=== PATIENT | female | born 1985 | race Two or more races ===

== ENCOUNTER 2018-03-01 10:55 | Emergency (ER) | payer OTHER, MEDICAID ==
[~2018-03-01] VITALS: Ht 180.3 cm; Wt 138.3 kg
[2018-03-01 11:00] VITALS: BP 139/83
[2018-03-01] MEDS ORDERED: SODIUM CHLORIDE 0.9% 1,000 ML IV ONE (11:30)
[2018-03-01] MEDS ORDERED: CLINDAMYCIN 900MG IV 50 ML IV ONE (11:30)
[2018-03-01] MEDS ORDERED: cefTRIAXone 1GM/10ml IVPUSH 10 ML IV ONE (11:30)
[2018-03-01] MEDS ORDERED: methylPREDNISolone SOD SUCC 125 MG/2 ML VL IV ONE (11:30)
[2018-03-01] MEDS ORDERED: KETOROLAC TROMETH 30 MG/ML 1ML VIAL IV ONE (11:30)
== END 2018-03-01 13:02 | disposition home or self-care (01) ==
LOC: ER 10:55
DX: J03.90 Acute tonsillitis, unspecified (principal); E07.89 Other specified disorders of thyroid; Z88.0 Allergy status to penicillin
CPT/HCPCS: 87070; 87880; 96365; 96375; 99284; J1885; J2930; J3490; J7030

== ENCOUNTER → 2020-01-23 | Emergency (ER) | payer MEDICAID, OTHER ==
[~2020-01-23] VITALS: Ht 180.3 cm; Wt 97.5 kg
[~2020-01-23] MED LIST: LIDOCAINE VISCOUS 2% 15ML UD PO ONE; cefTRIAXone SOD 1,000 MG VL IM ONE; methylPREDNISolone SOD SUCC 125 MG/2 ML VL IM ONE
[2020-01-23 17:17] VITALS: BP 150/90
== END | disposition home or self-care (01) ==
LOC: EDUNIT# 17:02 → ER 17:15 → EDBD 17:15
DX: J03.90 Acute tonsillitis, unspecified (principal); E07.9 Disorder of thyroid, unspecified; Z88.0 Allergy status to penicillin
CPT/HCPCS: 87070; 87880; 96372; 99284; J0696; J2930

== ENCOUNTER 2023-01-18 16:08 | Emergency (ER) | payer MEDICAID ==
[~2023-01-18] VITALS: Ht 180.3 cm; Wt 104.0 kg
[2023-01-18] MEDS ORDERED: HYDROcodone-ACET 10/325MG TAB PO ONE (16:30)
[2023-01-18] MEDS ORDERED: ALPRAZolam 0.5 MG TAB PO ONE (16:30)
[2023-01-18 16:48] LABS: Basophils # (auto) 0.1 10 ^3/uL (0-0.2); Basophils % (auto) 0.8 % (0.0-2.0); Eosinophils # (auto) 0.1 10 ^3/uL (0-0.8); Hematocrit 41.6 % (36.0-46.0); Lymphocytes # (auto) 2.4 10 ^3/uL (0.4-5.4); Lymphocytes % (auto) 24.5 % (10.0-50.0); Mean Corpuscular Hemoglobin 29.2 pg (28.0-32.0); Mean Corpuscular Hgb Conc. 33.5 g/dL (32.0-36.0); Mean Corpuscular Volume 86.9 fL (80.0-100.0); Monocytes # (auto) 0.5 10 ^3/uL (0-1.3); Monocytes % (auto) 5.3 % (0.0-12.0); Neutrophils # (auto) 6.6 10 ^3/uL (1.6-8.6); Neutrophils % (auto) 68.4 % (37.0-80.0); Nucleated Red Blood Cells % 0.1 %; Red Blood Cells 4.79 10^6/uL (4.0-5.20); Red Cell Distribution Width 13.3 % (11.8-14.3); White Blood Cell 9.7 10^3/uL (4.4-10.8)
[2023-01-18 17:07] LABS: Albumin 3.7 g/dL (3.4-5.0); Calcium 9.5 mg/dL (8.5-10.1)
[2023-01-18 17:11] LABS: BUN/Creatinine Ratio 14.9 (10.0-20.0); Bilirubin, Total 0.4 mg/dL (0.2-1.0); Total Protein 8.4 g/dL (6.4-8.2)
[2023-01-18] MEDS ORDERED: IBUP800T26 PO ×3 (20:38→22:17)
[2023-01-18] MEDS ORDERED: HYDR-4798 PO ×3 (20:38→22:17)
[2023-01-19 00:09] VITALS: BP 138/79
== END 2023-01-19 00:23 | disposition home or self-care (01) ==
LOC: ER 16:08 → EDBD 16:08 → ER 01-19 00:23
DX: G89.18 Other acute postprocedural pain (principal); R10.2 Pelvic and perineal pain; N99.820 Postprocedural hemorrhage of a genitourinary system organ or structure following a genitourinary system procedure; Z88.0 Allergy status to penicillin
CPT/HCPCS: 36415; 74177; 80053; 85025

== ENCOUNTER 2023-10-10 19:59 | Emergency (ER) | payer MEDICAID ==
[~2023-10-10] VITALS: Ht 180.3 cm; Wt 107.0 kg
[~2023-10-10 19:59] MED LIST changes: +HYDR-4798 PO; +IBUP-1455 PO; -LIDOCAINE VISCOUS 2% 15ML UD PO ONE; -cefTRIAXone SOD 1,000 MG VL IM ONE; -methylPREDNISolone SOD SUCC 125 MG/2 ML VL IM ONE
[2023-10-11 00:05] VITALS: BP 129/84; PULSE 78; RESP 18; TEMP 98.1; O2SAT 100
[2023-10-11] MEDS ORDERED: KETOROLAC TROMETH 30 MG/ML 1ML VIAL IM ONE (00:45)
[2023-10-11] MEDS ORDERED: RABIES VACCINE (PCEC)/PF 2.5 UNITS IM ONE (00:45)
[2023-10-11] MEDS ORDERED: RABIES IMMUNE GLOBULIN 300unit/2ml (150unit/ml) INJ IM ONE (00:45)
[2023-10-11] MEDS ORDERED: TETANUS-DIPTH-ACEL PERTUSSIS 0.5ML SYR Tdap IM ONE (01:00)
[2023-10-11] MEDS ORDERED: CEFU500T43 PO ×3 (02:59→20:21)
[2023-10-11] MEDS ORDERED: MET500T PO ×3 (02:59→20:21)
== END 2023-10-11 03:00 | disposition home or self-care (01) ==
LOC: ER 19:59
DX: S51.852A Open bite of left forearm, initial encounter (principal); R09.89 Other specified symptoms and signs involving the circulatory and respiratory systems; R07.89 Other chest pain; E03.9 Hypothyroidism, unspecified; Z79.1 Long term (current) use of non-steroidal anti-inflammatories (NSAID); Z79.899 Other long term (current) drug therapy; Z88.0 Allergy status to penicillin; W54.0XXA Bitten by dog, initial encounter; Y93.89 Activity, other specified; Y92.89 Other specified places as the place of occurrence of the external cause; Y99.8 Other external cause status
CPT/HCPCS: 71045; 73090; 90471; 90472; 90675; 90715; 96372; 99284; J1885

== ENCOUNTER 2025-08-10 02:44 | Emergency (ER) | payer MEDICAID ==
[~2025-08-10] VITALS: Ht 180.3 cm; Wt 98.9 kg
[~2025-08-10 02:44] MED LIST changes: +CEFU500T43 PO; +MET500T PO
--- NOTE | 2025-08-10 03:09 | ED.PDOC ---
History of Present Illness HPI Comments 40-year-old, obese female presents with chief complaint of right knee pain status post blunt trauma. Patient reports on injuring her right knee after her dog ran into it 1 week ago. Denies any additional falls or trauma to right knee prior to or after the incident. Denies any further symptoms. Chief Complaint: Lower Extremity Time Seen by MD: 02:58 Primary Care Provider: UNKNOWN Reviewed Notes: Nurses Notes, Medications, Allergies Allergies: Coded Allergies: Penicillins (Verified Allergy, Unknown, 11/24/15) Home Meds Active Scripts Tizanidine Hydrochloride (Tizanidine Hcl) 4 Mg Tab, 4 MG PO BID PRN for 7 Days, #14 TAB Prov:TRENA BRUNO [employer]TLEMENT PROCESSOR 08/10/25 Methylprednisolone (Medrol Dosepak) 4 Mg Guevara, 4 MG PO UD for 6 Days, #21 TAB UAD Prov:TRENA BRUNO [employer] SETTLEMENT PROCESSOR 08/10/25 Metronidazole (Metronidazole) 500 Mg Tab, 500 MG PO TID for 7 Days, #21 TAB Prov:ANATOLIY CHAIREZ PAC 10/11/23 Cefuroxime Axetil (Cefuroxime Axetil) 500 Mg Tab, 1 TAB PO BID for 7 Days, #14 TAB Prov:ANATOLIY CHAIREZ PAC 10/11/23 Ibuprofen Micronized (Ibuprofen) 800 Mg Tab, 800 MG PO Q8HP PRN, #30 TAB Prov:JOESPH ROUSE PAC 01/18/23 Hydrocodone-Acetaminophen (Hydrocodone Bitartrate/AC 10-325 mg) 1 Tab Tab, 1 TAB PO Q8HP PRN, #20 TAB Prov:JOESPH [facility] 01/18/23 Information Source: Patient Mode of Arrival: Ambulatory Severity: Moderate Timing: Days Duration: Since onset Prehospital treatment: None Past Medical History PAST MEDICAL HISTORY: Thyroid Surgical History: Denies all surgeries QUOTER History: No Pertinent QUOTER History Family History Family History: No family hx of HTN, Unobtainable Social History Smoker: Non-Smoker Alcohol: Rarely Drugs: Denies Drug Use Lives In: Home All Other Systems: Reviewed and Negative (Comprehensive review of systems are negative unless otherwise stated in HPI) Physical Exam General Appearance: No Apparent Distress, Obese HEENT: Normal ENT Inspection, Pharynx Normal, TMs Normal Neck: Full Range of Motion, Non-Tender, Normal, Normal Inspection Respiratory: Chest Non-Tender, Lungs Clear, No Accessory Muscle Use, No Respiratory Distress, Normal Breath Sounds Cardiovascular: No Edema, No JVD, No Murmur, No Gallop, Normal Peripheral Pulses, Regular Rate/Rhythm Breast Exam: Deferred Gastrointestinal: No Organomegaly, Non Tender, No Pulsatile Mass, Normal Bowel Sounds, Soft Genitalia: Deferred Pelvic: Deferred Rectal: Deferred Extremities: No calf tenderness, Normal capillary refill, Normal inspection, Normal range of motion, Non-tender, No pedal edema Musculoskeletal : Apperance: Normal Neurologic: Alert, orthopaedic general II-XII nml as Tested, No Motor Deficits, Normal Affect, Normal Mood, No Sensory Deficits Cerebellar Function: Normal Reflexes: Normal Skin: Dry, Normal Color, Warm Lymphatic: No Adenopathy Was a procedure done? Was a procedure done?: No Differential Dx Considerations may include: Fractures, contusions, sprain, dislocation, among others X-Ray, Labs, Meds, VS Vital Signs Date Time Temp Pulse Resp B/P (MAP) Pulse Ox O2 Delivery O2 Flow Rate FiO2 08/10/25 02:58 97.6 82 20 145/82 97 97.6 [place] [id number] Ph: [phone] DIAGNOSTIC IMAGING Diagnostic Imaging Report : [id number] Signed PATIENT: ADRIANA ELIZABETH ACCT: [id number] UNIT: [id number] : 1985 LOC: ER ROOM / BED: / AGE / SEX: 40 / F ADM STATUS: REG ER SERVICE 6 ORDERING PHYSICIAN: TRENA BRUNO PROCEDURE(s): RKN3 - R KNEE 3V XRAY REASON: pain injury ORDER NUMBER(s): [id number], ACCESSION NUMBER(s): [id number] CLINICAL INDICATION: pain injury TECHNIQUE: XY R KNEE 3V XRAY Comparison: XY L FOREARM XRAY on DOS: 10/11/23 FINDINGS/IMPRESSION: : There is no evidence of acute fracture or dislocation. Soft tissues are unremarkable. ATED BY: EDNYS GREENFIELD MD DICTATED DATE/TIME: 08/10/25 0321 SIGNED BY: DENYS GREENFIELD MD SIGNED DATE/TIME: 08/10/25 0321 CC: Time of 1ST Reevaluation: 02:58 Reevaluation 1ST: Unchanged Time of 2ND Reevaluation: 03:50 Reevaluation 2ND: Improved Patient Education/Counseling: Diagnosis, Treatment, Need For Follow Up Family Education/Counseling: No Family Present SEPSIS Sepsis Screen Date sepsis recognized/suspect: Aug 10, 2025 Time Sepsis recognized/suspect: 030 Recent Procedure: No On Antibiotic Therapy: No Respiratory Rate >20: No Heart Rate >90: No Temp<36 C (96.8 F) or >38.3 C: No SBP <90 or MAP <65 mmHG: No New Acute Mental Status Change: No Is the patient on CPAP, BIPAP,: No Physician Orders R Knee 3v Xray (08/10/25 03:07) Oxycodone W/ Acet 5/325mg Tab (Percocet (08/10/25 04:00) Vital Signs Date Time Temp Pulse Resp B/P (MAP) Pulse Ox O2 Delivery O2 Flow Rate FiO2 08/10/25 02:58 97.6 82 20 145/82 97 97.6 Departure 1 Departure Time of Disposition: 03:48 Impression: Primary Impression: Strain of knee and leg, right Qualified Codes: S86.911A - Strain of unspecified muscle(s) and tendon(s) at lower leg level, right leg, initial encounter Disposition: HOME / SELF CARE / HOMELESS Condition: Stable e-Prescriptions Tizanidine Hydrochloride (Tizanidine Hcl) 4 Mg Tab 4 MG PO BID PRN for 7 Days, #14 TAB Prov: TRENA BRUNO [employer] SETTLEMENT PROCESSOR 08/10/25 Methylprednisolone (Medrol Dosepak) 4 Mg Guevara 4 MG PO UD for 6 Days, #21 TAB UAD Prov: TRENA BRUNO [employer] SETTLEMENT PROCESSOR 08/10/25 Discharged With: Self Critical Care Note Critical Care Time?: No Stability Stability form required: No Heart Score Heart Score: Heart Score Response (Comments) Value History N/A 0 EKG N/A 0 Age N/A 0 Risk Factors N/A 0 Troponin N/A 0 Total 0 I personally scribed for ER ([email or web address]) on 08/10/25 at 03:09. Electronically submitted by Anshu Rodriguez ([email or web address]). I personally scribed for ER ([email or web address]) on 08/10/25 at 03:53. Electronically submitted by Anshu Rodriguez ([email or web address]). ER Aug 10, 2025 03:09 TRENA BRUNO [employer] SETTLEMENT PROCESSOR Aug 10, 2025 03:50
--- NOTE | 2025-08-10 03:23 | DVH ---
CLINICAL INDICATION: pain injury TECHNIQUE: XY R KNEE 3V XRAY Comparison: XY L FOREARM XRAY on DOS: 10/11/23 FINDINGS/IMPRESSION: : There is no evidence of acute fracture or dislocation. Soft tissues are unremarkable.
[2025-08-10] MEDS ORDERED: TIZA-142 PO (03:49)
[2025-08-10] MEDS ORDERED: METH4PAK PO (03:49)
[2025-08-10 04:47] VITALS: BP 128/70; PULSE 90; RESP 18; TEMP 98.4; O2SAT 99
[2025-08-10] MEDS: OXYCODONE W/ ACETAMINOPHEN 5/325MG TABLET PO ONE (04:47)
[2025-08-10] MEDS: KETOROLAC TROMETH 60MG/2ML VIAL IM ONE (04:47)
== END 2025-08-10 05:28 | disposition home or self-care (01) ==
LOC: ER 02:44
DX: S86.911A Strain of unspecified muscle(s) and tendon(s) at lower leg level, right leg, initial encounter (principal); Z88.0 Allergy status to penicillin; X58.XXXA Exposure to other specified factors, initial encounter; Y93.89 Activity, other specified; Y92.89 Other specified places as the place of occurrence of the external cause; Y99.8 Other external cause status
CPT/HCPCS: 73562; 96372; 99283; J1885